=== PATIENT | female | born 1975 | race Caucasian/White ===

== ENCOUNTER 2021-05-19 05:44 | Day surgery (SDC) | payer OTHER ==
[2021-05-19] MEDS ORDERED: Lactated Ringers 1,000 ML IV SCH (06:30)
[2021-05-19] MEDS ORDERED: Versed 2 MG/2 ML Injection ONE (07:35)
[2021-05-19] MEDS ORDERED: DIPRIVAN 200 MG/20 ML IV ONE ×2 (07:41→07:49)
[2021-05-19 08:46] VITALS: BP 125/76; PULSE 60; O2SAT 99
--- NOTE | 2021-05-19 13:02 | OP ---
SURGERY DATE/TIME: 05/19/2021 0737 PREOPERATIVE DIAGNOSIS: Epigastric pain status post Eduardo-en-Y, previous ulcer. POSTOPERATIVE DIAGNOSIS: Ulcer at the base of the Eduardo-en-Y anastomosis. PROCEDURE: Esophagogastroduodenoscopy. SURGEON: Dr. Mock. ANESTHESIA: Medications were given by the anesthesia department. HISTORY: The patient is a 46 year old white female who presents now for epigastric pain. It was noted on her medication list that she is on numerous amount of medications particularly the naproxen is of concern given her previous history. The patient was described the risks of the procedure including the risk of perforation, phlebitis, untoward reaction to medication, bleeding and missed lesions. The patient verbalized her understanding and desired to have the procedure performed. DESCRIPTION OF PROCEDURE: The patient was given the medications by the anesthesia department. She had continuous pulse oximetry, ECG monitoring, intermittent blood pressure monitoring and tidal CO2 monitoring during the examination. She was placed in the left lateral decubitus position. A bite block was placed and the flexible Olympus gastroscope was used to intubate the oropharynx. A view of the larynx was obtained and was normal. The scope was easily introduced in the esophagus which appeared to be normal throughout its length. The stomach residual area was entered. There was no identifiable remaining part of the stomach that could be identified. There was noted to be the Eduardo-en-Y. There were areas of fairly narrow area we were able to pass the gastroscope through. There was a staple at this area and right at the base of that area were noted what appeared to be a benign appearing ulcer. There was no active bleeding. Upon insertion and withdrawal no other mucosal lesions being encountered the scope was removed from the patient. The area that was noted to be ulcerated was too narrow to obtain a biopsy for this patient and we did not want to stir up any bleeding in that area. The scope was removed from the patient who tolerated the procedure well and sent back to outpatient recovery in good condition. The patient has been instructed to stop taking naproxen and begin omeprazole 20 mg a day and follow up with her primary care provider in one week.
== END 2021-05-19 08:48 | disposition home or self-care (01) ==
LOC: SDC 05:44
PROVIDERS: ATTEND Family Medicine
DX: K25.9 Gastric ulcer, unspecified as acute or chronic, without hemorrhage or perforation (principal); R10.13 Epigastric pain; Z98.84 Bariatric surgery status; Z87.11 Personal history of peptic ulcer disease
CPT/HCPCS: 84703; J2250; J2704

== ENCOUNTER 2023-08-19 05:36 | Day surgery (SDC) | payer MEDICARE ==
[2023-08-19 06:12] VITALS: RESP 16
[2023-08-19 06:15] LABS: HCG URINE TEST NEGATIVE (NEGATIVE)
[2023-08-19] MEDS ORDERED: Lactated Ringers 1,000 ML IV SCH (06:30)
[2023-08-19] MEDS ORDERED: Lactated Ringers 1,000 ML IV ONE (06:42)
[2023-08-19] MEDS ORDERED: Xylocaine-Mpf 2% 5 Ml Vial ONE (08:08)
[2023-08-19] MEDS ORDERED: DIPRIVAN 200 MG/20 ML IV ONE ×2 (08:08→08:23)
[2023-08-19] MEDS ORDERED: Versed 2 MG/2 ML Injection ONE (08:08)
[2023-08-19 08:58] VITALS: O2SAT 98
[2023-08-19 09:11] VITALS: BP 157/88; PULSE 59; TEMP 97.1
--- NOTE | 2023-08-19 11:59 | OP ---
SURGERY DATE: 08/19/2023 SURGERY TIME: 808 PREOPERATIVE DIAGNOSIS: 1. SCREENING EXAM. POSTOPERATIVE DIAGNOSIS: 1. NORMAL COLON. PROCEDURE: 1. Colonoscopy. SURGEON: Dr. Mock. ANESTHESIA: MAC. Medications given by the Anesthesia Department. BRIEF HISTORY: The patient is a 48 y/o WF presenting now for screening colonoscopy. The patient was appraised the risks of the procedure including the risk of perforation, phlebitis, untoward reaction to medication, bleeding, and missed lesions. The patient verbalized her understanding and desired to have the procedure performed. DESCRIPTION OF PROCEDURE: The patient was given the medications by the Anesthesia Department. She had continuous pulse oximetry, ECG monitoring, and intermittent BP monitoring during the examination. She was placed in the left lateral decubitus position. Rectal examination was performed and revealed normal anal sphincter tone and no masses. The flexible Olympus pediatric colonoscope was used to intubate the rectum. A view of the colon was developed sequentially to the cecum. Upon insertion and withdrawal, including a retroflex view in the rectum, no mucosal lesions were encountered. The scope was then removed from the patient who tolerated the procedure well and was sent back to OP recovery in good condition. The prep was noted to be fair to good.
== END 2023-08-19 09:20 | disposition home or self-care (01) ==
LOC: SDC 05:36
PROVIDERS: ATTEND Family Medicine
DX: Z12.11 Encounter for screening for malignant neoplasm of colon (principal)
CPT/HCPCS: 81025; J2250; J2704

== ENCOUNTER 2023-10-31 09:28 | Emergency (ER) | payer MEDICARE ==
--- NOTE | 2023-10-31 09:34 | ERPHSYRPT ---
- History of Present Illness Time Seen by Provider: 10/31/23 09:34 Source: patient Exam Limitations: no limitations Physician History: This is an overweight 48-year-old white female patient of nurse practitioner Jarod who presents with right hip pain. She states "it is my sciatica". Patient has history of chronic right sciatica. She had acute exacerbation yesterday morning which did not improve with her usual medication that includes a regimen of tizanidine, gabapentin and hydrocodone. Patient denies having had a fall or acute trauma to the area. Patient declines radiographic studies. Patient has a history of gastroesophageal reflux disease, chronic sciatica, depression, bipolar disorder, PTSD, asthma, migraine headaches and degenerative disc disease. Patient was driven into the hospital by her mother Timing/Duration: yesterday Context: unknown Quality: sharpness, stabbing Hip Pain Location: hip (R) Severity of Pain-Max: moderate Severity of Pain-Current: moderate Modifying Factors: Improves With: movement Symptoms prior to fall: none Associated Symptoms: denies symptoms Allergies/Adverse Reactions: doxepin Allergy (Intermediate, Verified 10/31/23 09:42) hallucinations Penicillins Allergy (Intermediate, Verified 10/31/23 09:42) Rash Home Medications: Oxybutynin Chloride Xl 5 mg [Ditropan XL 5 MG] 5 mg PO DAILY 05/18/21 [History] buPROPion HCL [Wellbutrin Xl] 300 mg PO DAILY 05/18/21 [History] Calcium Polycarbophil [Fiber Laxative] 625 mg PO BID 08/08/23 [History] Cariprazine HCl [Vraylar] 3 mg PO HS 08/08/23 [History] Cholecalciferol (Vitamin D3) [Vitamin D3] 1,000 unit PO DAILY 08/08/23 [History] Cranberry Fruit Extract [Cranberry Concentrate] 500 mg PO DAILY 08/08/23 [History] Cyanocobalamin (Vitamin B-12) [Vitamin B-12] 5,000 mcg PO DAILY 08/08/23 [History] Docusate Sodium 100 mg PO DAILY 08/08/23 [History] Gabapentin 300 mg PO TID PRN PRN 08/08/23 [History] Melatonin 10 mg PO HS 08/08/23 [History] Omeprazole 20 mg PO DAILY 08/08/23 [History] Tizanidine HCl 4 mg PO HS 08/08/23 [History] Hydrocodone/Acetaminophen [Hydrocodone-Acetamin 7.5-325] 1 tablet PO TID 08/19/23 [History] Travel Risk - International Travel Have you traveled outside of the country in past 3 weeks: No - Coronavirus Screening Are you exhibiting any of the following symptoms?: No Close contact with a COVID-19 positive Pt in past 14-21 Days: No - Review of Systems Constitutional: No Symptoms Eyes: No Symptoms Ears, Nose, & Throat: No Symptoms Respiratory: No Symptoms Cardiac: No Symptoms Abdominal/Gastrointestinal: No Symptoms Genitourinary Symptoms: No Symptoms Musculoskeletal: Joint Pain (Right hip) Skin: No Symptoms Neurological: No Symptoms Psychological: No Symptoms Endocrine: No Symptoms Hematologic/Lymphatic: No Symptoms Immunological/Allergic: No Symptoms All Other Systems: Reviewed and Negative - Past Medical History Pertinent Past Medical History: Yes Neurological History: Migraines ENT History: No Pertinent History Cardiac History: No Pertinent History Respiratory History: Asthma, Bronchitis Endocrine Medical History: No Pertinent History Musculoskeletal History: Degenerative Disk Disease, Osteoarthritis, Rheumatoid Arthritis GI Medical History: No Pertinent History History: No Pertinent History Psycho-Social History: Bipolar, Depression, Anxiety, Other Female Reproductive Disorders: No Pertinent History Other Medical History: fusion 2010, PTSD, scoliosis, - Past Surgical History Past Surgical History: Yes Neuro Surgical History: No Pertinent History Cardiac: No Pertinent History Respiratory: No Pertinent History Gastrointestinal: Other Genitourinary: No Pertinent History Musculoskeletal: Orthopedic Surgery Female Surgical History: Section, Other, Dilation & Curettage Other Surgical History: uterine ablation, back surgery with implants, gastric bypass in 2011 - Social History Smoking Status: Never smoker Exposure to second hand smoke: No Drug Use: none - Nursing Vital Signs Nursing Vital Signs: Initial Vital Signs Temperature 99.5 F 10/31/23 09:29 Pulse Rate 101 H 10/31/23 09:29 Respiratory Rate 20 10/31/23 09:29 Blood Pressure 125/71 10/31/23 09:29 O2 Sat by Pulse Oximetry 98 10/31/23 09:29 Pain Scale Pain Intensity [Right hip] 10 Pain Intensity 10 - Physical Exam General Appearance: no apparent distress, alert, anxiety Eye Exam: PERRL/EOMI, eyes nml inspection Ears, Nose, Throat Exam: normal ENT inspection, moist mucous membranes Neck Exam: normal inspection, non-tender, supple, full range of motion Respiratory Exam: airway intact, No chest tenderness, No respiratory distress Gastrointestinal Exam: No tenderness Rectal Exam: not done Back Exam: normal inspection, normal range of motion, No CVA tenderness, No vertebral tenderness Extremity Exam: normal inspection, normal range of motion, pelvis stable Neurologic Exam: alert, oriented x 3, cooperative, 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 tested, normal mood/affect, sensation nml Skin Exam: normal color, warm, dry Lymphatic Exam: No adenopathy SpO2 Interpretation: normal O2 Delivery: Room Air - Course Nursing assessment & vital signs reviewed: Yes Ordered Tests: Medication Summary Discontinued Medications Generic Name Dose Route Start Last Admin Trade Name Freq PRN Reason Stop Dose Admin Methylprednisolone Sodium 0 mg 10/31/23 09:58 Succinate 125 mg/ Sterile IM 10/31/23 09:59 Water 2 ml STAT ONE Hydromorphone HCl 0.5 mg 10/31/23 09:57 Hydromorphone 1 Mg/1ml Inj IM 10/31/23 09:58 STAT ONE Ketorolac Tromethamine 60 mg 10/31/23 09:57 Ketorolac Tromethamine 30 Mg/Ml Inj IM 10/31/23 09:58 STAT ONE Prochlorperazine Edisylate 5 mg 10/31/23 09:58 Prochlorperazine Edisylate 10 Mg/2 Ml Vial IM 10/31/23 09:59 STAT ONE - Progress Progress: improved, pain not gone completely, re-examined Progress Note: 10/31/23 10:16 This patient's medical issue is 1 of low complexity. The level of the complexity and the workup performed is based on review of the patient's past medical history, review the patient's medication list, review the patient's drug allergy list, history present illness and physical findings on examination. Laboratory data is not necessary in this workup. Patient is refusing radiographic studies. Patient is convinced it is her sciatica. I think this is reasonable to treat medically without radiographic studies since she did not suffer any acute fall or trauma. Counseled pt/family regarding: diagnosis, need for follow-up Medical Desision Making - Independent Historian Additional History obtained from: Mother - Diagnostic Testing Diagnostic test were ordered, analyzed, and reviewed by me: No - Risk of complications The pt has a mod risk of morbidity or mortality based on: Need for prescription drug management - Departure Departure Disposition: Home Clinical Impression: Sciatica, right side Condition: Stable Critical Care Time: No Referrals: JOSE G HIDALGO NP [Primary Care Provider] - Follow up/PCP as directed Additional Instructions: Continue your other medications as prescribed. Take your new prednisone prescription as prescribed. Call your prescribing provider and your pain specialist today, 10/31/2023, for further evaluation management of your outpatient pain symptoms. Prescriptions: Prednisone 10 mg [Deltasone 10 mg] 10 mg PO TID #12 tablet
[2023-10-31 09:53] VITALS: TEMP 99.5
[2023-10-31] MEDS ORDERED: TORAdol 30 mg Injection IM ONE (09:57)
[2023-10-31] MEDS ORDERED: Hydromorphone 1 mg/ml Injection IM ONE (09:57)
[2023-10-31] MEDS ORDERED: solu-MEDROL 125 MG, Sterile H2O 10 ml 2 ML IM ONE ×2 (09:58)
[2023-10-31] MEDS ORDERED: Compazine 10 MG/2 ML IM ONE (09:58)
[2023-10-31] MEDS ORDERED: TORAdol 30 mg Injection ONE (10:22)
[2023-10-31] MEDS ORDERED: Sterile H2O 10 ml IJ ONE (10:22)
[2023-10-31] MEDS ORDERED: Compazine 10 MG/2 ML ONE (10:24)
[2023-10-31] MEDS ORDERED: solu-MEDROL ONE (10:24)
[2023-10-31] MEDS ORDERED: Hydromorphone 1 mg/ml Injection ONE (10:24)
[2023-10-31 11:05] VITALS: BP 110/73; PULSE 90; RESP 19; O2SAT 95
== END 2023-10-31 11:14 | disposition home or self-care (01) ==
LOC: ED 09:28
DX: M54.31 Sciatica, right side (principal); Z79.52 Long term (current) use of systemic steroids; Z79.891 Long term (current) use of opiate analgesic; Z79.899 Other long term (current) drug therapy
CPT/HCPCS: 96372; 99283; J1170; J1885; J2930

== ENCOUNTER 2024-02-01 18:22 | Emergency (ER) | payer MEDICARE ==
[2024-02-01] MEDS ORDERED: Sodium Chloride 0.9% 1000 ML 1,000 ML ONE (18:32)
[2024-02-01] MEDS ORDERED: Zofran 4 MG/2 ML VIAL ONE (18:32)
[2024-02-01] MEDS: Sodium Chloride 0.9% 1000 ML 1,000 ML IV SCH (18:33)
[2024-02-01] MEDS: Zofran 4 MG/2 ML VIAL IV ONE (18:33)
[2024-02-01 18:45] LABS: Absolute Neutrophil Ct (ANC) 5.37 x10^3/uL (1.4-6.9); BASOPHIL % 1.3 % (0.0-0.4); Basophil (Absolute #) 0.13 x10^3/uL (0-0.4); Eosinophil % 0.9 % (0.00-5.0); Eosinophil (Absolute #) 0.09 x10^3/uL (0-0.5); Hematocrit 42.5 % (35-47); Hemoglobin 14.2 g/dL (12.0-16.0); IMMATURE GRAN # 0.02 x10^3u/L (0.00-0.03); IMMATURE GRAN % 0.2 % (0.00-0.4); Lymphocyte (Absolute #) 3.51 x10^3/uL (1.0-4.6); Lymphocytes % 36.1 % (24.0-44.0); Mean Cell Volume 84.8 fL (78-100); Mean Corpuscular Hemoglobin 28.3 pg (26-32); Mean Corpuscular Hgb Concent. 33.4 g/dL (32-36); Mean Platelet Volume 11.7 fL (7.5-11.0); Monocytes % 6.2 % (0.0-12.0); Neutrophil % 55.3 % (36.0-66.0); Platelet Count 341 x10^3/uL (150-450); Red Blood Count 5.01 x10^6/uL (4.1-5.4); Red Cell Distribution Width 14.1 % (11.5-14.0); White Blood Count 9.7 x10^3/uL (4.0-10.5)
[2024-02-01] MEDS ORDERED: PROTONIX 40 MG IV IV ONE (18:58)
[2024-02-01] MEDS ORDERED: Pepcid 20 MG VIAL IV ONE (18:58)
[2024-02-01] MEDS: Sodium Chloride 0.9% 1000 ML 1,000 ML IV STA (19:01)
[2024-02-01] MEDS: Pepcid 20 MG VIAL IV ONE (19:01)
[2024-02-01] MEDS: PROTONIX 40 MG IV IV ONE (19:01)
--- NOTE | 2024-02-01 19:20 | ERPHSYRPT ---
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 Pt states she has had some epigastric discomfort for the past several months, is scheduled to see GI in March 2024. Pt states her emesis has been NBNB. Pt states she has been taking ozempic for 2 months, has had some GI upset after each dose she has taken, last dose was on 01/28. Pt currently denies cp, soa, FAULKNER, vision changes, diarrhea. Pt does endorse some pale stools that have been ongoing for several weeks. Timing/Duration: day(s) (2) Activities at Onset: none Quality: aching Abdominal Pain Onset Location: epigastric Pain Radiation: no radiation Severity of Pain-Max: moderate Severity of Pain-Current: mild Modifying Factors: Improves With: nothing Associated Symptoms: nausea, vomiting, No chest pain, No diaphoresis, No shortness of breath Previous symptoms: same symptoms as today, no recent treatment Allergies/Adverse Reactions: doxepin Allergy (Intermediate, Verified 02/01/24 18:31) hallucinations Penicillins Allergy (Intermediate, Verified 02/01/24 18:31) Rash Home Medications: Oxybutynin Chloride Xl 5 mg [Ditropan XL 5 MG] 5 mg PO DAILY 05/18/21 [History] buPROPion HCL [Wellbutrin Xl] 300 mg PO DAILY 05/18/21 [History] Cariprazine HCl [Vraylar] 3 mg PO HS 08/08/23 [History] Cholecalciferol (Vitamin D3) [Vitamin D3] 1,000 unit PO DAILY 08/08/23 [History] Cranberry Fruit Extract [Cranberry Concentrate] 500 mg PO DAILY 08/08/23 [History] Cyanocobalamin (Vitamin B-12) [Vitamin B-12] 5,000 mcg PO DAILY 08/08/23 [History] Docusate Sodium 100 mg PO DAILY 08/08/23 [History] Gabapentin 300 mg PO TID PRN PRN 08/08/23 [History] Melatonin 10 mg PO HS 08/08/23 [History] Omeprazole 20 mg PO DAILY 08/08/23 [History] Tizanidine HCl 4 mg PO HS 08/08/23 [History] calcium polycarbophiL [Fiber Laxative] 625 mg PO BID 08/08/23 [History] Hydrocodone/Acetaminophen [Hydrocodone-Acetamin 7.5-325] 1 tablet PO TID 08/19/23 [History] Hx Tetanus, Diphtheria Vaccination/Date Given: Yes Hx Influenza Vaccination/Date Given: Yes - Review of Systems Constitutional: No Symptoms Respiratory: No Symptoms Cardiac: No Symptoms Abdominal/Gastrointestinal: Abdominal Pain, Nausea, Vomiting, No Diarrhea, No Hematemesis, No Hematochezia, No Melena - Past Medical History Pertinent Past Medical History: Yes Neurological History: Migraines ENT History: No Pertinent History Cardiac History: No Pertinent History Respiratory History: Asthma, Bronchitis Endocrine Medical History: No Pertinent History Musculoskeletal History: Degenerative Disk Disease, Osteoarthritis, Rheumatoid Arthritis GI Medical History: No Pertinent History History: No Pertinent History Psycho-Social History: Bipolar, Depression, Anxiety, Other Female Reproductive Disorders: No Pertinent History Other Medical History: fusion 2010, PTSD, scoliosis, - Past Surgical History Past Surgical History: Yes Neuro Surgical History: No Pertinent History Cardiac: No Pertinent History Respiratory: No Pertinent History Gastrointestinal: Other Genitourinary: No Pertinent History Musculoskeletal: Orthopedic Surgery Female Surgical History: Section, Other, Dilation & Curettage Other Surgical History: uterine ablation, back surgery with implants, gastric bypass in 2011 - Female History Hx Now: No - Social History Smoking Status: Never smoker Exposure to second hand smoke: No Drug Use: none Patient Lives Alone: No - Nursing Vital Signs Nursing Vital Signs: Initial Vital Signs Temperature 98.5 F 02/01/24 18:22 Pulse Rate 115 H 02/01/24 18:22 Respiratory Rate 28 H 02/01/24 18:22 Blood Pressure 135/97 02/01/24 18:22 O2 Sat by Pulse Oximetry 99 02/01/24 18:22 Pain Scale Pain Intensity 3 - Physical Exam General Appearance: no apparent distress, alert Respiratory Exam: normal breath sounds, lungs clear, airway intact, No chest tenderness, No respiratory distress, No diminished breath sounds Cardiovascular Exam: regular rate/rhythm, normal heart sounds, normal peripheral pulses Gastrointestinal/Abdomen Exam: soft, normal bowel sounds, No tenderness, No distention, No guarding SpO2 Interpretation: normal O2 Delivery: Room Air - Course EKG Interpreted by Me: RATE (79), Sinus Rhythm, NORMAL AXIS, NORMAL QRS, Other (no significant ST changes; qtcb 444) Ordered Tests: Active Orders 24 hr Category Date Time Status EKG-ER Only STAT Care 02/01/24 18:32 Completed ABDOMEN AND PELVIS W&WO CONTRA [CT] Stat Exams 02/01/24 18:32 Completed AMYLASE Stat Lab 02/01/24 18:41 Completed CBC W DIFF Stat Lab 02/01/24 18:41 Completed CMP Stat Lab 02/01/24 18:41 Completed TROPONIN Stat Lab 02/01/24 18:41 Completed Medication Summary Discontinued Medications Generic Name Dose Route Start Last Admin Trade Name Freq PRN Reason Stop Dose Admin Droperidol 1.25 mg 02/01/24 18:32 02/01/24 19:57 Droperidol 5 Mg/2 Ml Vial IV 02/01/24 18:33 1.25 mg STAT ONE Administration Droperidol Confirm 02/01/24 19:56 Droperidol 5 Mg/2 Ml Vial Administered 02/01/24 19:57 Dose 5 mg .ROUTE .STK-MED ONE Famotidine 20 mg 02/01/24 18:32 02/01/24 19:01 Famotidine 20 Mg/1 Vial IV 02/01/24 18:33 20 mg STAT ONE Administration Famotidine Confirm 02/01/24 18:58 Famotidine 20 Mg/1 Vial Administered 02/01/24 18:59 Dose 20 mg IV .STK-MED ONE Sodium Chloride 1,000 mls @ 125 mls/hr 02/01/24 18:30 02/01/24 18:33 Sodium Chloride 0.9% 1000 Ml IV 03/02/24 18:29 125 mls/hr .Q8H CEZAR Administration Sodium Chloride 1,000 mls @ 999 mls/hr 02/01/24 18:32 02/01/24 20:34 Sodium Chloride 0.9% 1000 Ml IV 02/01/24 19:32 Infused .Q1H1M STA Infusion Sodium Chloride Confirm 02/01/24 18:32 Sodium Chloride 0.9% 1000 Ml Administered 02/01/24 18:33 Dose 1,000 mls @ ud .ROUTE .STK-MED ONE Ondansetron HCl 4 mg 02/01/24 18:29 02/01/24 18:33 Ondansetron Hcl 4 Mg/2 Ml Vial IV 02/01/24 18:30 4 mg STAT ONE Administration Ondansetron HCl Confirm 02/01/24 18:32 Ondansetron Hcl 4 Mg/2 Ml Vial Administered 02/01/24 18:33 Dose 4 mg .ROUTE .STK-MED ONE Pantoprazole Sodium 40 mg 02/01/24 18:32 02/01/24 19:01 Pantoprazole 40 Mg Vial IV 02/01/24 18:33 40 mg STAT ONE Administration Pantoprazole Sodium Confirm 02/01/24 18:58 Pantoprazole 40 Mg Vial Administered 02/01/24 18:59 Dose 40 mg IV .STK-MED ONE Lab/Rad Data: Laboratory Result Diagrams 02/01/24 18:41 02/01/24 18:41 Laboratory Results 02/01/24 02/01/24 Range/Units 18:41 18:41 WBC 9.7 (4.0-10.5) x10^3/uL RBC 5.01 (4.1-5.4) x10^6/uL Hgb 14.2 (12.0-16.0) g/dL Hct 42.5 (35-47) % MCV 84.8 (78-100) fL MCH 28.3 (26-32) pg MCHC 33.4 (32-36) g/dL RDW 14.1 H (11.5-14.0) % Plt Count 341 (150-450) x10^3/uL MPV 11.7 H (7.5-11.0) fL Gran % 55.3 (36.0-66.0) % Immature Gran % (Auto) 0.2 (0.00-0.4) % Nucleat RBC Rel Count 0.0 (0.00-0.1) % Eos # (Auto) 0.09 (0-0.5) x10^3/uL Immature Gran # (Auto) 0.02 (0.00-0.03) x10^3u/L Absolute Lymphs (auto) 3.51 (1.0-4.6) x10^3/uL Absolute Monos (auto) 0.60 (0.0-1.3) x10^3/uL Absolute Nucleated RBC 0.00 (0.00-0.01) x10^3u/L Lymphocytes % 36.1 (24.0-44.0) % Monocytes % 6.2 (0.0-12.0) % Eosinophils % 0.9 (0.00-5.0) % Basophils % 1.3 (0.0-0.4) % Absolute Granulocytes 5.37 (1.4-6.9) x10^3/uL Basophils # 0.13 (0-0.4) x10^3/uL Sodium 140 (135-145) mmol/L Potassium 4.0 (3.5-5.1) mmol/L Chloride 107 (98-107) mmol/L Carbon Dioxide 24 (22-30) mmol/L Anion Gap 12.3 (5-15) MEQ/L BUN 8 (7-17) mg/dL Creatinine 1.23 H (0.52-1.04) mg/dL Estimated GFR 54.9 ML/MIN Glucose 98 (74-106) mg/dL Calcium 9.4 (8.4-10.2) mg/dL Total Bilirubin 0.20 (0.2-1.3) mg/dL AST 31 (14-36) U/L ALT 19 (0-35) U/L Alkaline Phosphatase 93 (38-126) U/L Troponin I < 0.012 (0.000-0.034) ng/mL Serum Total Protein 7.3 (6.3-8.2) g/dL Albumin 4.3 (3.5-5.0) g/dL Amylase 54 (30-110) U/L - Progress Progress: improved Progress Note: 02/02/24 01:38 CT abd/pel w/: 1. Mild hepatomegaly. 2. Small (<3 mm) calcification in the inferior pole of the right kidney, could be calyceal calculus. 3. Elevated right hemidiaphragm, containing liver and the hepatic flexure of the colon. Chilaiditi sign. 4. Postsurgical changes in the stomach and small bowel loops. 5. Mild degenerative changes of the dorsolumbar spine. Postsurgical changes in L5-S1, with spinal arthrodesis material noted. pt received significant relief from sx w/ dose of droperidol pt reported feeling much better, requested to dc home Labs grossly normal plan to dc home w/ PCP f/u Counseled pt/family regarding: lab results, diagnosis, need for follow-up, rad results Medical Desision Making - Risk of complications Minimal Risk: Minimal risk of morbidity - Departure Departure Disposition: Home Clinical Impression: Hepatomegaly Nausea & vomiting Qualifiers: Vomiting type: unspecified Qualified Code(s): R11.2 - Nausea with vomiting, unspecified Condition: Stable Critical Care Time: No Referrals: JOSE G HIDALGO, SMOKE CONTROL SUPERVISOR [Primary Care Provider] - Follow up/PCP as directed Instructions: Nausea and Vomiting, Adult (DC) Additional Instructions: Follow up w/ PCP Jose G stricklandp instructed to eat light meals, drink plenty of clear liquids ODT 4mg zofran prescription sent w/ pt return to ED if bloody vomiting starts, abdominal pain worsens, start bloody stools Prescriptions: Ondansetron ODT 4 MG [Zofran Odt 4 mg] 4 mg PO Q6H PRN PRN #10 tablet PRN Reason: Nausea
[2024-02-01 19:29] LABS: ALBUMIN 4.3 g/dL (3.5-5.0); ALKALINE PHOSPHATASE 93 U/L (38-126); AMYLASE 54 U/L (30-110); ANION GAP 12.3 MEQ/L (5-15); BLOOD UREA NITROGEN 8 mg/dL (7-17); CHLORIDE 107 mmol/L (98-107); Calcium 9.4 mg/dL (8.4-10.2); Carbon Dioxide 24 mmol/L (22-30); Creatinine 1 1.23 mg/dL (0.52-1.04); EST GLOMERULAR FILTRATION RATE 54.9 ML/MIN; Glucose 98 mg/dL (74-106); SGOT/AST 31 U/L (14-36); SGPT/ALT 19 U/L (0-35); SODIUM 140 mmol/L (135-145); TROPONIN < 0.012 ng/mL (0.000-0.034); Total Protein 7.3 g/dL (6.3-8.2)
[2024-02-01 19:37] VITALS: TEMP 98.5
[2024-02-01 20:26] VITALS: O2SAT 97
--- NOTE | 2024-02-01 20:39 | XRAY ---
CLINICAL HISTORY: abdominal pain TECHNIQUE: A CT scan of the abdomen and pelvis was performed with & without IV contrast. 80 ml of IV Isovue 370 was administered as a contrast agent. Bowel loops are opacified by prior administration of oral contrast. Coronal and sagittal reconstructive images were also obtained. CTDI: 50.52 mGy. DLP: 2826/05 mGy*cm. One of the following dose reduction techniques were utilized for this exam: Automated exposure control, adjustment of the mA and/or kV according to patient size, use of iterative reconstruction COMPARISON: none FINDINGS: NONENHANCED SCAN: There is no evidence of hyperdense calculus in the region of kidneys, ureters, or bladder. There is no evidence of calcified lymph nodes. No vascular calcifications. CONTRAST-ENHANCED SCAN: A scan through the lower chest reveals unremarkable lung basis and heart. Elevated right hemidiaphragm, containing liver and the hepatic flexure of the colon. Chilaiditi sign. Abdomen: The liver is mildly increased in size and measures 18 cm. No focal or diffuse parenchymal abnormality. The portal vein, intrahepatic biliary radicals, and the bile ducts are normal. The spleen, pancreas, and adrenal glands are unremarkable. The kidneys are normal in size and shape. No hydronephrosis. Small (<3 mm) calcification in the inferior pole of the right kidney, could be calyceal calculus. The gallbladder is distended and shows no definite stones. There is no evidence of wall thickening/ pericholecystic collection. Postsurgical changes in the stomach and small bowel loops. The ascending colon, the transverse colon, and the descending colon are unremarkable. There is no evidence of significant enlargement of the mesenteric or retroperitoneal lymph nodes. No free fluid. Pelvis: The urinary bladder is unremarkable. The rectosigmoid colon is unremarkable. Uterus is unremarkble. No adnexal lesion was identified. The pelvic vasculature is unremarkable. No evidence of pelvic lymphadenopathy. Mild degenerative changes of the dorsolumbar spine. Postsurgical changes in L5-S1, with spinal arthrodesis material noted. IMPRESSION: 1. Mild hepatomegaly. 2. Small (<3 mm) calcification in the inferior pole of the right kidney, could be calyceal calculus. 3. Elevated right hemidiaphragm, containing liver and the hepatic flexure of the colon. Chilaiditi sign. 4. Postsurgical changes in the stomach and small bowel loops. 5. Mild degenerative changes of the dorsolumbar spine. Postsurgical changes in L5-S1, with spinal arthrodesis material noted. Electronically Signed by: Ila Tapia MD. (02/01/2024 20:34:58 EDT)
[2024-02-01 21:32] VITALS: BP 142/74; PULSE 100; RESP 18
== END 2024-02-01 21:30 | disposition home or self-care (01) ==
LOC: ED 18:22
DX: R16.0 Hepatomegaly, not elsewhere classified (principal); R11.2 Nausea with vomiting, unspecified; Z79.85 Long-term (current) use of injectable non-insulin antidiabetic drugs; Z79.899 Other long term (current) drug therapy
CPT/HCPCS: 36415; 74178; 80053; 82150; 84484; 85025; 93005; 96374; 96375; 99284; J2405

== ENCOUNTER 2024-11-16 08:21 | Day surgery (SDC) | payer MEDICARE ==
--- NOTE | 2024-11-15 20:21 | HP ---
HISTORY OF PRESENT ILLNESS: Right upper quadrant pain, some nausea and vomiting, full easy, emesis every other day or so, history of gastric bypass 2012, ultrasound no stones, HIDA borderline per Radiology, had upper endoscopy in September and okay according to patient. PAST MEDICAL HISTORY: Coronary artery disease, rheumatoid arthritis, reflux, depression, arthritis, history of anemia, history of ulcers in the past, also had an upper endoscopy that was okay in the past month and a half or so. HOME MEDICATIONS: Calcium 250 citrate, multivitamin, vitamin D3, vitamin C, hydroxyzine, furosemide, bupropion, ziprasidone, pregabalin, omeprazole, potassium chloride, tizanidine, oxycodone, OxyContin. ALLERGIES: Depakote and penicillin. PAST SURGICAL HISTORY: She has had D and C, had endoscopy in the past, had oophorectomy, , uterine ablation, back surgery, gastric bypass. SOCIAL HISTORY: Former smoker. No alcohol abuse. FAMILY HISTORY: Heart disease. REVIEW OF SYSTEMS: Twelve systems reviewed. No chest pain or palpitations. Other systems negative other than per history of present illness. PHYSICAL EXAMINATION: GENERAL: Height 5 feet 3 inches. BMI 32.59. No acute distress. HEENT: Sclerae anicteric. NECK: No JVD. CARDIOVASCULAR: Regular rate and rhythm. RESPIRATORY: Equal excursion, nonlabored breathing. ABDOMEN: Soft. SKIN: Dry. EXTREMITIES: No cyanosis or edema. NEUROLOGIC: Alert. Moving extremities symmetrically. PSYCHIATRIC: Appropriate mood and affect. IMPRESSION: Right upper quadrant pain, nausea and vomiting, normal EGD per patient recently, borderline HIDA scan. Similar symptoms during the HIDA scan, question if she had chronic cholecystitis, symptomatic biliary dyskinesia. Discussed option of cholecystectomy. Patient would like to proceed as she had a fairly unremarkable upper endoscopy recently. The risks were explained in detail including bleeding and infection; risk of bowel injury or perforation; risk of trocar injury or hernia; risk of bile leak, bile duct injury, retained stone or sludge possibly requiring ERCP or open procedure; risk of anesthesia, DVT, PE, pneumonia; risk of aches and pains, bloating, constipation, and/or loose stools possibly chronic in nature; possibility of no improvement of preop symptoms possibly requiring other procedures or workup or referrals. She understands. Will proceed with laparoscopic cholecystectomy, possible open, as an outpatient. Otherwise, continue medications for chronic back pain, depression, heart disease, and reflux.
[~2024-11-16 08:21] MED LIST: Sensorcaine 0.25% 10 ML ONE; Sodium Chloride 0.9% 1000 ML 1,000 ML ONE
[2024-11-16] MEDS ORDERED: CLINDAMYCIN-D5W 900 MG/50 ML*** 900 MG/50 ML BAG IV ONE (08:25)
[2024-11-16] MEDS ORDERED: NEURONTIN ONE (08:25)
[2024-11-16] MEDS ORDERED: Decadron 4 MG ONE (08:25)
[2024-11-16] MEDS ORDERED: TYLENOL EXTRA STRENGTH 500 MG ONE (08:25)
[2024-11-16] MEDS ORDERED: celeBREX 100 MG ONE (08:25)
[2024-11-16] MEDS ORDERED: Levofloxacin 500MG/100ML D5W 500 MG/100 ML BAG IV ONE (08:26)
[2024-11-16] MEDS ORDERED: Lactated Ringers 1,000 ML IV ONE (08:26)
[2024-11-16] MEDS: NEURONTIN PO ONE (08:27)
[2024-11-16] MEDS: Decadron 4 MG PO ONE (08:27)
[2024-11-16] MEDS: celeBREX 100 MG PO ONE (08:27)
[2024-11-16] MEDS: TYLENOL EXTRA STRENGTH 500 MG PO ONE (08:27)
[2024-11-16] MEDS: Lactated Ringers 1,000 ML IV SCH (08:28)
[2024-11-16] MEDS: CLINDAMYCIN-D5W 900 MG/50 ML*** 900 MG/50 ML BAG IV SCH (08:34)
[2024-11-16] MEDS: Levofloxacin 500MG/100ML D5W 500 MG/100 ML BAG IV SCH (08:35)
[2024-11-16 08:38] LABS: HCG URINE TEST NEGATIVE (NEGATIVE)
[2024-11-16 08:45] VITALS: RESP 16
[2024-11-16 08:46] LABS: Absolute Neutrophil Ct (ANC) 3.35 x10^3/uL (1.56-6.13); BASOPHIL % 1.6 % (0.1-1.2); Basophil (Absolute #) 0.11 x10^3/uL (0.01-0.08); Eosinophil % 1.3 % (0.7-5.8); Eosinophil (Absolute #) 0.09 x10^3/uL (0.04-0.36); Hematocrit 38.7 % (34.1-44.9); Hemoglobin 12.8 g/dL (11.2-15.7); IMMATURE GRAN # 0.01 x10^3u/L (0.001-0.031); IMMATURE GRAN % 0.1 % (0.001-0.429); Lymphocyte (Absolute #) 2.99 x10^3/uL (1.18-3.74); Mean Cell Volume 86.6 fL (79.4-94.8); Mean Corpuscular Hemoglobin 28.6 pg (25.6-32.2); Mean Corpuscular Hgb Concent. 33.1 g/dL (32.2-35.5); Mean Platelet Volume 11.5 fL (9.4-12.3); Monocytes % 5.8 % (4.7-12.5); Neutrophil % 48.2 % (34.0-71.1); Platelet Count 249 x10^3/uL (182-369); Red Blood Count 4.47 x10^6/uL (3.93-5.22)
[2024-11-16 09:03] LABS: ANION GAP 9.6 MEQ/L (5-15); Calcium 9.3 mg/dL (8.4-10.2); Creatinine 1 1.17 mg/dL (0.52-1.04); EST GLOMERULAR FILTRATION RATE 57.9 ML/MIN; Potassium 3.5 mmol/L (3.5-5.1)
[2024-11-16] MEDS ORDERED: propofoL IV ONE (09:04)
[2024-11-16] MEDS ORDERED: Zofran 4 MG/2 ML VIAL ONE ×2 (09:18→10:47)
[2024-11-16] MEDS ORDERED: ROCURONIUM BROMIDE IV ONE (09:18)
[2024-11-16] MEDS ORDERED: Decadron 4 MG INJ ONE (09:18)
[2024-11-16] MEDS ORDERED: Ketamine HCl 50 MG/ML ONE (09:34)
[2024-11-16] MEDS ORDERED: TORAdol 30 mg Injection ONE (09:58)
[2024-11-16] MEDS ORDERED: BRIDION 200MG/2ML IV ONE (09:58)
[2024-11-16] MEDS ORDERED: SUBLIMAZE 100 MCG/2 ML ONE (10:43)
[2024-11-16] MEDS ORDERED: Hydromorphone 1 mg/ml Injection ONE ×2 (10:44→11:51)
[2024-11-16] MEDS ORDERED: Compazine 10 MG/2 ML ONE (11:14)
[2024-11-16 12:17] VITALS: O2SAT 98
[2024-11-16 12:33] VITALS: BP 144/83; PULSE 67; TEMP 98
--- NOTE | 2024-11-17 13:11 | OP ---
SURGERY DATE/TIME: 11/16/2024 [id number] PREOPERATIVE DIAGNOSES: 1) Acute exacerbation of chronic cholecystitis. 2) Symptomatic biliary dyskinesia. POSTOPERATIVE DIAGNOSES: 1) Acute exacerbation of chronic cholecystitis. 2) Symptomatic biliary dyskinesia. 3) Mild chronic cholecystitis. PROCEDURE: Laparoscopic cholecystectomy. SURGEON: Yrn Camejo MD. ANESTHESIA: General. ESTIMATED BLOOD LOSS: Minimal. INDICATIONS: As noted above. The risks and benefits were explained in detail, not limited to. Consent obtained. DESCRIPTION OF PROCEDURE AND FINDINGS: The patient was taken to the operating room. General anesthesia was induced. The patient was prepped and draped in the usual sterile fashion. After official time-out, no disagreement in planned procedure. Transverse incision made at the supraumbilical area. Fascia grasped and pulled upward. Veress needle inserted. Tested with saline. Pneumoperitoneum accomplished insufflating from an opening pressure of 0-15. An 11 mm bladeless port and camera inserted without difficulty, followed two 5 mm right upper quadrant ports and 11 mm epigastric port. Gallbladder had some mild chronic inflammation, dissected posterolateral to anterior fashion until the critical view was obtained both anteriorly and posteriorly. Once this was accomplished, cystic artery and cystic duct clipped x3 and divided in the usual fashion. The gallbladder was slowly, carefully dissected free from its dense attachments to the liver bed staying directly on the gallbladder wall, clipping additional oozing side branches off the cystic artery or vein directly on the gallbladder wall as necessary. Just prior to releasing the final attachments, the liver bed reinspected. The clips were noted to be in place in the cystic duct/cystic artery stumps. No signs of any active bleeding or bile leakage. [place] there was no benefit from drain placement. A copious amount of irrigation had been accomplished lateral to the liver and subhepatic space irrigating clear. Gallbladder bed released from final attachments to the anterior edge of the liver, pulled up into the supraumbilical 10/11 port site and was decompressed outside the skin, the gallbladder pulled free and passed off. This fascial defect was closed with puncture closure device with #1 Vicryl. Pneumoperitoneum decompressed. Wounds irrigated out. Skin incision closed with 4-0 Vicryl. Steri-Strips and sterile dressing applied. The patient tolerated the procedure well. There were no immediate complications. Findings were discussed with the family out in the waiting area. She was already on oxycodone and OxyContin. She was taking some hydrocodone, and it was felt she would benefit from continuing her home medications, as I can write for nothing stronger than she is already on and basically add some additional Toradol as needed for some breakthrough pain.
== END 2024-11-16 12:42 | disposition home or self-care (01) ==
LOC: SDC 08:21
PROVIDERS: ATTEND Surgery
DX: K81.1 Chronic cholecystitis (principal); K82.8 Other specified diseases of gallbladder
CPT/HCPCS: 36415; 80048; 81025; 85025; J1100; J1171; J1885; J1956; J2405; J2704; J3010; L0625; A9270-GY